=== PATIENT | female | born 1985 | race Two or more races ===

== ENCOUNTER → 2016-12-29 | Outpatient (REF) | payer MEDICAID ==
[2016-12-29 13:11] LABS: ALBUMIN 3.7 GM/DL (3.2-5.2); ALBUMIN/GLOBULIN RATIO 1.19 (1.00-1.93); ALKALINE PHOSPHATASE 58 U/L (45-117); ALT/SGPT 24 U/L (12-78); ANION GAP 8 MEQ/L (8-16); AST/SGOT 13 U/L (15-37); BILIRUBIN,TOTAL 0.6 MG/DL (0.2-1.0); BLOOD UREA NITROGEN 14 MG/DL (7-18); CALCIUM LEVEL 8.9 MG/DL (8.5-10.1); CARBON DIOXIDE LEVEL 30 MEQ/L (21-32); CHLORIDE LEVEL 101 MEQ/L (98-107); CHOLESTEROL LEVEL 152 MG/DL (<200); CREATININE FOR GFR 0.76 MG/DL (0.55-1.02); FREE T4 1.07 NG/DL (0.76-1.46); GLOMERULAR FILTRATION RATE > 60.0 (>60); GLUCOSE, FASTING 79 MG/DL (70-105); POTASSIUM SERUM 4.3 MEQ/L (3.5-5.1); SODIUM LEVEL 139 MEQ/L (136-145); TOTAL PROTEIN 6.8 GM/DL (6.4-8.2); TRIGLYCERIDES LEVEL 95 MG/DL (<150)
== END ==
LOC: M SFHCPLAZ 10:04
PROVIDERS: ATTEND Family Medicine
DX: F33.0 Major depressive disorder, recurrent, mild (principal); E66.9 Obesity, unspecified

== ENCOUNTER 2017-08-04 15:33 | Emergency (ER) | payer MEDICAID ==
[2017-08-04] MEDS: diphenhydrAMINE INJ 50MG/ML VIAL (J1200) IV (16:53)
[2017-08-04] MEDS: NS 1,000 ML IV (16:53)
[2017-08-04] MEDS: KETOROLAC 30 MG/ML VIAL (J1885) IV (16:53)
[2017-08-04] MEDS: METOCLOPRAMIDE INJ 10MG/2ML VIAL (J2765) IV (16:53)
== END 2017-08-04 18:45 | disposition home or self-care (01) ==
LOC: M ED 15:33
DX: G43.909 Migraine, unspecified, not intractable, without status migrainosus (principal); Z79.899 Other long term (current) drug therapy
CPT/HCPCS: J1200

== ENCOUNTER → 2017-11-02 | Outpatient (CLI) | payer MEDICAID | LOC: M PLARAD 15:56 | DX: G43.001 Migraine without aura, not intractable, with status migrainosus (principal); G44.229 Chronic tension-type headache, not intractable; R42 Dizziness and giddiness | CPT/HCPCS: 70551 ==

== ENCOUNTER → 2018-04-11 | Outpatient (CLI) | payer MEDICAID ==
[~2018-04-11] MED LIST: METF500T13 PO
== END ==
LOC: M LAB 11:02
PROVIDERS: ATTEND Family Medicine
DX: L68.0 Hirsutism (principal)

== ENCOUNTER 2018-06-28 10:41 | Emergency (ER) | payer MEDICAID ==
[~2018-06-28] VITALS: Ht 160 cm; Wt 99.1 kg
[2018-06-28] MEDS ORDERED: METF500T4 (11:04)
[2018-06-28] MEDS: ONDANSETRON 4 MG ORAL DISINTEGRATING TAB (Q0162 PER 1MG) PO ONE (11:36)
--- NOTE | 2018-06-28 11:41 | REP ---
Head CT without contrast: History: Injury. Comparison study: Comparison CT brain August 04, 2017. CT findings: Bone window settings demonstrate an intact bony calvarium. There is no evidence of skull fracture or incidental bony calvarial lesion. The visualized paranasal sinuses appear clear. No intraorbital abnormality is seen. On soft tissue window setting images; the lateral, third, and fourth ventricles are normal in size and position. Ball-white differentiation pattern is normal above and below the tentorium. There are is no evidence of intracranial hemorrhage. No mass, edema, infarction, or midline shift is seen. No extra-axial fluid collection is appreciated. Impression: Negative noncontrast head CT. Electronically Signed by Magan Colvin MD 06/28/2018 11:39 A
[2018-06-28] MEDS ORDERED: ONDA4TAB6 PO (12:30)
[2018-06-28 12:36] VITALS: BP 124/68
== END 2018-06-28 12:38 | disposition home or self-care (01) ==
LOC: M ED 10:41
DX: S09.90XA Unspecified injury of head, initial encounter (principal); W01.0XXA Fall on same level from slipping, tripping and stumbling without subsequent striking against object, initial encounter; Y92.018 Other place in single-family (private) house as the place of occurrence of the external cause; Z79.899 Other long term (current) drug therapy; Z88.8 Allergy status to other drugs, medicaments and biological substances; F17.210 Nicotine dependence, cigarettes, uncomplicated
CPT/HCPCS: 70450; 99283; Q0162